=== PATIENT | male | born 1950 | race Caucasian/White ===

== ENCOUNTER 2018-12-03 11:41 | Outpatient (CLI) | payer MEDICARE, SELFPAY ==
[2018-12-03 13:08] LABS: Anion Gap 7.6 mmol/L (3-11); BUN 18 mg/dL (7-18); CO2 31.4 mmol/L (21.0-32.0); CREATININE 0.85 mg/dL (0.70-1.30); Calcium 8.8 mg/dL (8.5-10.1); Chloride 102 mmol/L (98-107); Glucose 94 mg/dL (70-100); Potassium 4.1 mmol/L (3.5-5.1); Sodium 141 mmol/L (136-145)
== END 2018-12-03 12:01 ==
PROVIDERS: PCP Family Medicine; Visit Provider Nurse Practitioner
DX: I10 Essential (primary) hypertension (principal)
CPT/HCPCS: 36415; 80048

== ENCOUNTER 2020-01-18 04:01 | Outpatient (CLI) | payer OTHER, MEDICARE, SELFPAY ==
[2020-01-18 13:39] LABS: Calculated LDL 143 mg/dL (<100); Cholesterol 249 mg/dL (<200); HDL Cholesterol 67 mg/dL (40-60); Triglyceride 199 mg/dL (<150)
== END 2020-01-18 04:21 ==
PROVIDERS: PCP Nurse Practitioner; Visit Provider Nurse Practitioner
DX: I10 Essential (primary) hypertension (principal)
CPT/HCPCS: 36415; 80061

== ENCOUNTER 2020-12-25 02:32 | Outpatient (CLI) | payer OTHER, SELFPAY ==
[2020-12-25 12:49] LABS: CREATININE 0.9 mg/dL (0.70-1.30); Calculated LDL 67 mg/dL (<100); Cholesterol 155 mg/dL (<200); HDL Cholesterol 62 mg/dL (40-60); Potassium 4.5 mmol/L (3.5-5.1); Triglyceride 131 mg/dL (<150)
== END 2020-12-25 02:33 | disposition home or self-care (01) ==
LOC: LOS 02:33
PROVIDERS: PCP Nurse Practitioner; Visit Provider Nurse Practitioner
DX: I10 Essential (primary) hypertension (principal); E78.5 Hyperlipidemia, unspecified
CPT/HCPCS: 36415; 80061; 82565; 84132

== ENCOUNTER 2021-07-31 10:40 | Emergency (ER) | payer OTHER, SELFPAY ==
[2021-07-31] VITALS (9 sets, daily range): BP systolic 136–154; BP diastolic 82–92; PULSE 53–61; RESP 12–18; TEMP 36.4; O2SAT 97–100
--- NOTE | 2021-07-31 10:30 | RT.EKG_ITS ---
APPROVED REPORT Exam: Resting ECG Reason for Exam: DIZZINESS Patient Location: E HR:53 bpm ECG Measurements Heart Rate 53 AXIS GA 172 P 40 QRSd 97 QRS -24 QT 434 T 10 QTc 406 Conclusion Sinus bradycardia...rate< 60
[2021-07-31] MEDS: Lactated Ringers 1,000 ML 1000 ML IV (11:15)
--- NOTE | 2021-07-31 11:18 | ED.GENADUL_ITS ---
Discharge Plan Disposition Patient Disposition: HOME Condition: Stable Discharge Details Clinical Impression: Pre-syncope, Bradycardia, Acute dehydration Primary Care Provider: Isadora Chen ED Provider: Bryan Gee Home Meds and New Rx's Prescriptions: Continued atorvastatin 20 mg tablet 20 mg PO QPM Qty: 90 4RF losartan 100 mg tablet 100 mg PO DAILY Qty: 90 4RF hydrochlorothiazide 25 mg tablet 25 mg PO DAILY Qty: 90 4RF Discharge Instructions Instructions: Dehydration (ED), Bradycardia (ED), Near Syncope (ED) Additional Instructions: It was determined that you were dehydrated today. Please be sure to drink plenty of clear liquids to maintain adequate hydration. Your heart rate was low today. It was recommended that you have a Holter monitor for outpatient cardiac monitoring placed at time of discharge. You have refused this recommended diagnostic test. You may have life-threatening or lifestyle modifying disease that would go undiagnosed and untreated without further testing. Please be sure to discuss this with your doctor as soon as possible. Return to the emergency department at any time for further work-up and treatment Please contact your primary care physician to arrange follow-up. Return to the ER immediately for any worsening or new concerning symptoms. Referrals: Isadora Chen, MIXING OPERATOR [Primary Care Provider] - Medical Decision Making 1122--70-year-old male with history of COPD, hyperlipidemia, hypertension, ulcerative colitis, here with sudden onset of presyncope while at rest this morning. Patient has mild bradycardia with heart rate in the 50s here. He states that typically his heart rate is in the 70s. Blood pressure is mildly elevated. Patient has poor skin turgor and dry mucous membranes and I am concerned about hypovolemia. I will give crystalloid bolus and reassess status. Consider significant lecture light abnormalities including hypokalemia as well as thyroid dysfunction. Labs pending. EKG was reviewed and interpreted by me: Please see report, sinus bradycardia, biphasic T waves noted in V5 and V6, no old for comparison. -- Labs reviewed -elevated BUN is consistent with hypovolemia. No significant electrolyte abnormalities. Normal TSH. Patient reassessed and heart rate improved in the 60s. Patient is feeling much better after IV fluid. Plan for outpatient follow-up. Plan for outpatient Holter monitoring to be initiated at discharge. Patient provided informed refusal of Holter monitor. He plans to follow-up with his primary care physician. Disposition decision was made weighing the risks and benefits of hospitalization versus outpatient treatment, the risk for further decompensation, and the patient's wishes. The patient was stable and requested discharge. Prior to discharge, my usual and customary return precautions were reviewed with the patient - this included follow-up instructions and reason to return to the emergency department if condition worsens, does not improve as expected, or other new concerns arise. Lab Data Lab results reviewed: Yes I reviewed the patient's lab results. Labs: Laboratory Tests Range/Units 07/31/21 07/31/21 07/31/21 11:16 11:16 11:35 WBC (4.4-10.8) 10^3/uL 6.03 RBC (4.36-5.78) 10^6/uL 4.77 Hgb (13.5-17.5) g/dL 14.1 Hct (40.0-50.0) % 43.3 MCV (80-95) fL 91 MCH (27.0-33.0) pg 29.6 MCHC (32.0-36.0) % 32.6 RDW (11.8-14.1) % 12.9 Plt Count (130-400) 10^3/uL 196 MPV (8.0-11.0) fL 11.4 H Immature Gran % 0.2 Neutrophils % 67.1 Lymphocytes % 21.7 Monocytes % 8.1 Eosinophils % 2.2 Basophils % 0.7 Nucleated RBC % (0.0-0.3) % 0.0 Absolute Neutrophils (1.2-6.7) 10^3/uL 4.05 Absolute Lymphocytes (1.2-3.4) 10^3/uL 1.31 Absolute Monocytes (0.1-0.8) 10^3/uL 0.49 Absolute Eosinophils (0.0-0.7) 10^3/uL 0.13 Absolute Basophils (0.0-0.2) 10^3/uL 0.04 Sodium Cancelled 139 Potassium Cancelled 3.6 Chloride Cancelled 103 Carbon Dioxide Cancelled 29.0 Anion Gap Cancelled 7.0 BUN Cancelled 25 H Creatinine Cancelled 0.9 Estimated GFR/1.73 m2 Cancelled >= 60.00 Glucose Cancelled 136 H Calcium Cancelled 8.2 L Magnesium Cancelled 2.0 Total Bilirubin Cancelled 0.4 AST Cancelled 19 ALT Cancelled 29 Alkaline Phosphatase Cancelled 60 Troponin I Cancelled < 50 Total Protein Cancelled 6.5 Albumin Cancelled 3.3 L TSH Cancelled 0.82 HPI General Mode of arrival: ambulatory . Date/Time Provider Initiated Documentation: 07/31/21 10:55 . Limitations to Documentation: no limitations . Information obtained by: patient . HPI Narrative: 70-year-old male with history of COPD, hyperlipidemia, ulcerative colitis, hypertension, presents with chief complaint of dizziness. Patient notes lightheadedness with a feeling like he was going to pass out which came on just prior to arrival while he was seated and at rest symptoms were severe. No modifiers. Symptoms resolved after a few minutes. He had no associated pain including no headache, chest pain or abdominal pain during the episode. Patient denies recent lower extremity edema or calf pain. Patient does note he has not been drinking as much fluid as he thinks he should and is worried that he could be dehydrated. Related Data Home Medications Medication Instructions Recorded Confirmed atorvastatin 20 mg tablet 20 mg PO QPM #90 tabs 12/28/20 07/31/21 losartan 100 mg tablet 100 mg PO DAILY #90 tabs 01/25/21 07/31/21 hydrochlorothiazide 25 mg tablet 25 mg PO DAILY #90 tabs 03/12/21 07/31/21 Previous Rx's Medication Instructions Recorded atorvastatin 20 mg tablet 20 mg PO QPM #90 tabs 12/28/20 losartan 100 mg tablet 100 mg PO DAILY #90 tabs 01/25/21 hydrochlorothiazide 25 mg tablet 25 mg PO DAILY #90 tabs 03/12/21 Allergies Allergy/AdvReac Type Severity Reaction Status Date / Time No Known Allergies Allergy Verified 07/31/21 10:55 General Stated Complaint: Dizzy/Sync VÍCTOR: 3 Review of Systems All systems reviewed & are unremarkable except as noted in HPI and below Constitutional Constitutional: Denies fever(s) Cardiovascular Cardiovascular: Denies chest pain and Denies dyspnea Respiratory Respiratory: Denies dyspnea Musculoskeletal Musculoskeletal: Reports back pain (low, chronic) PFSH All Active Problems (Updated 07/31/21 @ 13:19 by Bryan Gee MD) Pre-syncope (Acute) Bradycardia (Acute) Acute dehydration (Acute) Seborrheic keratoses (Acute) scalp Varicose vein of leg (Acute) Hyperlipidemia (Acute) COPD (chronic obstructive pulmonary disease) (Chronic) Nocturia (Acute) Ulcerative colitis (Acute 09/12/11) Primary osteoarthritis of left knee (Acute 10/13/16) both knees- has seen ortho here Essential hypertension (Acute 03/03/13) Cavus deformity of right foot, acquired (Acute 10/29/15) Medical History Arthritis of knee Closed displaced fracture of shaft of fourth metacarpal bone of right hand with routine healing (10/13/16) COPD (chronic obstructive pulmonary disease) Hypercholesterolemia Hypertension Laceration of foot Sebaceous cyst Shoulder dislocation Tendon laceration Traumatic rupture of left posterior tibial tendon (07/11/15) Ulcerative colitis Surgical History Incision & Drainage, Abscess or Hematoma Family History Mother , age 91 No problems noted. Father , age 61 COPD (chronic obstructive pulmonary disease) Sister Depression Son No problems noted. Daughter No problems noted. Daughter No problems noted. Maternal Grandfather No problems noted. Paternal Grandfather Stroke Maternal Grandmother Cancer ?ovarian/bone Paternal Grandmother No problems noted. Social History Smoking/Tobacco Use Status: Former Tobacco Use Tobacco: How many years used: 30 Second Hand Exposure: Yes Smoking risk assessment performed?: Yes Alcohol Intake: current Alcohol Intake frequency: 0-2 drinks per day Alcohol type: beer Drug use: Never Substance use type: does not use Counseling given: No Caregiver/Support person: No Household members: spouse Housing: house Communication Needs: Hard of Hearing Do you need help understanding health information?: Rarely Pets and animals: Yes Pets and animals: dog(s) and horse(s) Sexually active: No Do you think of yourself as: straight/heterosexual What is your relationship status?: How often do you talk on the phone with friends or family?: three or more times per week Do you belong to any clubs or organized social groups?: no Panel score (0-1 are the most socially isolated patients): 2 Frequency: daily Special jacqui needs: No Seatbelt use: sometimes Helmet use: Yes Helmet use: sometimes Drive intox or ride w/intox route sales driver: No Do you feel safe in your relationship?: Yes Exam Const General: cooperative and no acute distress HENMT Head: normocephalic and atraumatic Mouth: mucous membranes dry Eyes Conjunctivae: normal conjunctivae Sclera: normal sclerae EOM: EOM intact bilaterally Neck Neck: trachea midline and supple Resp Auscultation: clear to auscultation bilaterally, no rales, no rhonchi and no wheezes Cardio Rate: not tachycardic Rhythm: regular rhythm GI Palpation: soft, not firm, no guarding, no masses, not rigid and nontender Skin General skin exam: no rashes or lesions noted and turgor decreased Neuro General: patient alert, patient awake, patient oriented x3 and tone normal Cranial Nerves: CN's II-XI intact bilaterally Speech: speech normal Gait: normal gait Motor: strength 5/5 throughout Sensory Exam: no sensory deficits noted Extrem General: no edema Psych Appearance: grossly normal Mental Status: mental status grossly normal Speech and Movement: speech and movement normal Course Vital Signs Vital signs: Vital Signs Temperature 36.4 C L 07/31/21 10:39 Pulse 59 L 07/31/21 10:39 Respiratory Rate 12 07/31/21 10:39 Blood Pressure 136/82 07/31/21 10:39 Pulse Oximetry 100 07/31/21 10:39 Temperature 36.4 C L 07/31/21 10:39 Temperature Source Temporal Artery Scan 07/31/21 10:39 Pulse 59 L 07/31/21 10:39 Respiratory Rate 18 07/31/21 11:00 Respiratory Effort 07/31/21 11:00 Respiratory Depth Normal 07/31/21 11:00 Respiratory Pattern Normal 07/31/21 11:00 Blood Pressure 136/82 07/31/21 10:39 Blood Pressure Position Supine 07/31/21 10:39 Pulse Oximetry 100 07/31/21 10:39 Oxygen Delivery Method Nasal Cannula 07/31/21 10:39 Pain Level 0 07/31/21 10:39
[2021-07-31 11:26] LABS: Abs Immature Grans 0.01 10^3/uL (0.0-0.06); Absolute Basophil Count 0.04 10^3/uL (0.0-0.2); Absolute Eosinophil Count 0.13 10^3/uL (0.0-0.7); Absolute Lymphocyte Count 1.31 10^3/uL (1.2-3.4); Absolute Monocyte Count 0.49 10^3/uL (0.1-0.8); Absolute Neutrophil Count 4.05 10^3/uL (1.2-6.7); Basophils % 0.7; Eosinophils % 2.2; HCT 43.3 % (40.0-50.0); HGB 14.1 g/dL (13.5-17.5); Immature Grans % 0.2; Lymphocytes % 21.7; MCH 29.6 pg (27.0-33.0); MCHC 32.6 % (32.0-36.0); MCV 91 fL (80-95); MPV 11.4 fL (8.0-11.0); Monocytes % 8.1; Neutrophils % 67.1; Platelet Count 196 10^3/uL (130-400); RBC 4.77 10^6/uL (4.36-5.78); RDW 12.9 % (11.8-14.1); RDW-SD 43.4 fL; WBC 6.03 10^3/uL (4.4-10.8)
[2021-07-31 12:07] LABS: ALT 29 U/L (16-63); AST 19 U/L (15-37); Albumin 3.3 g/dL (3.4-5.0); Alkaline Phosphatase 60 U/L (46-116); BUN 25 mg/dL (7-18); Bilirubin, Total 0.4 mg/dL (0.2-1.0); CREATININE 0.9 mg/dL (0.70-1.30); Calcium 8.2 mg/dL (8.5-10.1); Chloride 103 mmol/L (98-107); Glucose 136 mg/dL (74-106); Potassium 3.6 mmol/L (3.5-5.1); Sodium 139 mmol/L (136-145); TSH (W/Ref FT4) 0.82 uIU/mL (0.36-3.74); Total Protein 6.5 g/dL (6.4-8.2); Troponin I < 50 ng/L (<or=60)
[2021-07-31 13:49] LABS: Calculated LDL 134 mg/dL (<100); Cholesterol 210 mg/dL (<200); HDL Cholesterol 60 mg/dL (40-60); Triglyceride 84 mg/dL (<150)
== END 2021-07-31 14:42 | disposition home or self-care (01) ==
LOC: ER 13:40
PROVIDERS: Emergency Provider Student in an Organized Health Care Education/Training Program; PCP Nurse Practitioner
DX: R55 Syncope and collapse; R00.1 Bradycardia, unspecified; E86.0 Dehydration; R42 Dizziness and giddiness
CPT/HCPCS: 36415; 80053; 80061; 93005; 96360; 99284; 83735; 84443; 84484; 85025; 93010

== ENCOUNTER 2022-02-17 08:59 | Outpatient (CLI) | payer OTHER, SELFPAY | END 2022-02-17 09:00 | disposition home or self-care (01) | LOC: CARDOPNVT 08:59 | PROVIDERS: PCP Family Medicine; Visit Provider Family Medicine | DX: R00.1 Bradycardia, unspecified (principal); R55 Syncope and collapse | CPT/HCPCS: 93270 ==

== ENCOUNTER 2022-03-24 11:36 | Outpatient (CLI) | payer MEDICARE, SELFPAY ==
--- NOTE | 2022-03-24 11:42 | W.CARDEVENT ---
Date of service: 03/24/22 Time of Service: 11:42 Cardiac Event Recorder Referring Provider:: Yesenia Horowitz Indications:: Bradycardia Cardiac Event Note: This is a cardiac event monitor, reportedly ordered for bradycardia. Patient was monitored for a total period of 20 days Rhythm throughout was sinus with an average heart rate of 76. Minimum was 57, maximum 132 There were no significant ventricular dysrhythmias There were rare atrial premature beats. There was no atrial fibrillation. The strip labeled atrial fibrillation was sinus tachycardia with premature atrial contractions There was no high-grade AV block, no pauses greater than 3 seconds No apparent patient's symptoms
== END 2022-03-24 11:37 | disposition home or self-care (01) ==
LOC: CARDOPNVT 11:36
PROVIDERS: PCP Family Medicine; Visit Provider Internal Medicine Cardiovascular Disease
DX: R00.0 Tachycardia, unspecified (principal)
CPT/HCPCS: 93272

== ENCOUNTER 2022-05-15 02:34 | Outpatient (CLI) | payer MEDICARE, SELFPAY ==
--- NOTE | 2022-05-15 08:00 | DI.RAD_ITS ---
Exam(s) XR CHEST 2V PA LATERAL EXAM: XR CHEST 2V PA LATERAL CLINICAL HISTORY: cough x 3 wks,copd,j44.9 TECHNIQUE: 2D digital imaging was performed of the chest. Two images were obtained. PA and lateral views were obtained. COMPARISON: CR LEFT RIBS TO INCLUDE CXR from 08/03/2016 FINDINGS: MEDIASTINUM: Normal. HEART: Normal. PULMONARY VASCULATURE: Normal. There is tortuosity of the thoracic aorta. LUNGS: Clear. PLEURAL SPACE: No pleural effusion or pneumothorax. BONE:Within normal limits for the patient's age. OTHER FINDINGS:Normal. IMPRESSION: No acute pulmonary findings. DATA REPOSITORY: RADIATION DOSE DELIVERED:
[2022-05-15] MEDS: Albuterol HFA 18 GM 200 PUFF INH IH (11:36)
[2022-05-15] MEDS: Inhaler, Assist Device 1 EACH MC (11:36)
--- NOTE | 2022-05-16 16:12 | W.PFT ---
Date of service: 05/15/22 Time of Service: 10:12 Pulmonary Function Test Result Requesting Provider Yesenia Horowitz Indications: COPD Interpretation Spirometry: There is no airflow limitation. There is no bronchodilator response. Lung Volumes: Normal lung volumes Diffusion Capacity: Elevated diffusion, likely due to elevatred BMI Airway Pressure: Normal airways resistance Impression Normal pulmonary function testing Note: When compared to 05/12/11, lung function is stable when adjusting for age. Clinical Correlation therefore is recommended.
== END 2022-05-15 02:35 | disposition home or self-care (01) ==
PROVIDERS: PCP Family Medicine; Visit Provider Family Medicine
DX: J44.9 Chronic obstructive pulmonary disease, unspecified (principal)
CPT/HCPCS: 94060; 94726; 94729; 71046

== ENCOUNTER 2022-07-17 11:38 | Outpatient (CLI) | payer MEDICARE, SELFPAY ==
--- NOTE | 2022-07-17 11:00 | DI.RAD_ITS ---
Exam(s) XR FINGER LT MIDDLE EXAM: XR FINGER LT MIDDLE CLINICAL HISTORY: LEFT MIDDLE FINGER. TECHNIQUE: 2D digital imaging was performed of the left finger. Three views were obtained. AP, lat eral and oblique views were obtained. COMPARISON: No exams were available for comparison FINDINGS: BONES: No acute fracture is present. No bony destructive lesion is seen. JOINTS: No dislocation present. Degenerative changes are seen in the interphalangeal joints of the fi nger with mild joint space narrowing and bony hypertrophy. SOFT TISSUE: Normal. IMPRESSION: Degenerative changes of the middle finger. DATA REPOSITORY: RADIATION DOSE DELIVERED:
== END 2022-07-17 11:39 | disposition home or self-care (01) ==
LOC: DIORS 11:38
PROVIDERS: PCP Family Medicine; Referring Provider Family Medicine; Visit Provider Student in an Organized Health Care Education/Training Program
DX: M67.442 Ganglion, left hand (principal)
CPT/HCPCS: 99213; 73140

== ENCOUNTER 2022-07-30 12:19 | Day surgery (SDC) | payer MEDICARE, SELFPAY ==
[2022-07-30 12:20] VITALS: BP 168/96; PULSE 70; RESP 16; TEMP 36.2; O2SAT 97
--- NOTE | 2022-07-30 14:02 | W.PM.DSUDISC ---
Date of service: 07/30/22 Time of Service: 14:02 Discharge Plan Disposition Patient Disposition: Home Condition: Good Discharge Details Reason For Visit: LMF cyst excision Attending Provider: Lisandro Johnson Primary Care Provider: Yesenia Horowitz Home Meds and New Rx's Prescriptions: New acetaminophen 500 mg tablet 1,000 mg PO TID Qty: 90 0RF ibuprofen 600 mg tablet 600 mg PO TID PRN (Reason: pain) Qty: 90 0RF Continued fluticasone propionate 50 mcg/actuation spray,suspension 1 spray intranasal BID Qty: 16 1RF Rx Instructions: administer into each nostril hydrochlorothiazide 12.5 mg tablet 12.5 mg PO DAILY Qty: 90 3RF losartan 100 mg tablet 100 mg PO DAILY Qty: 90 4RF Discharge Instructions Additional Instructions: Finger Cyst Excision Discharge Instructions Activity: You may use the finger for light activities as tolerated after the first two days. Avoid rigorous use or heaving lifting with that hand. Dressing/Cast: You may remove the dressing in two days and replace it with a Band-aid. You may shower and get the incision wet after 48 hours. Medications: - You should take Tylenol and Ibuprofen for baseline pain control. - You may apply ice over the finger. Follow-up: 7-10 days Referrals: Lisandro Johnson MD [ [facility] STAFF PHYSICIAN] - Activity:: Activity as Tolerated Remove Dressings/Wound Care:: 48 hours Shower/Bathe:: 48 hours Diet:: As Tolerated Discharge Orders Discharge Orders: Discharge Order (Routine); Ordered 07/30/22 Ordered By: Milind Strange
[2022-07-30] MEDS: Lidocaine 1% Pres-Free W/EPI 1/200,000 10 ML VIAL (14:20)
[2022-07-30] MEDS: Sodium Bicarbonate 50 MEQ/50 ML VIAL (14:20)
[2022-07-30 14:42] VITALS: BP 141/87; PULSE 65; RESP 16; TEMP 36.6; O2SAT 96
--- NOTE | 2022-07-31 07:44 | W.PM.OP ---
Date of service: 07/30/22 Time of Service: 14:20 Operative Note Operative Note DATE OF PROCEDURE: 07/30/22 PRE-OP DIAGNOSIS: Left Middle Finger Digital Mucous Cyst with Nail Deformity POST-OP DIAGNOSIS: same PROCEDURE: Mucous Cyst Excision - Left Middle Finger SURGEON: Lisandro Johnson ANESTHESIA TYPE: Local By Surgeon Refer to Anesthesia Record ESTIMATED BLOOD LOSS: 5 PATHOLOGY: none sent COMPLICATIONS: None Patient was transported to: same day Patient's condition: stable Indications: I have seen Festus in clinic for symptoms of a digital mucous cyst. The mass persisted and caused pain to direct contact and with use. The diagnosis of a mucous cyst was made. The symptoms had not responded to conservative measures. I discussed cyst excision with the patient. I reviewed the risks of the procedure to include, but not limited to, bleeding, infection, pain, stiffness, recurrence, damage to nerves or vessels. Despite these risks, the patient elected to proceed. Findings: There was a cyst of the distal phalanx, arising from the DIP joint. The cyst and its capsule was removed and an arthrotomy at the cyst location performed. Procedure Description: Festus was greeted in the preoperative holding area where the correct side was identified and marked. The consent was reviewed with the patient and signed. All questions were answered. He was taken back to the operating room. The patient was placed into the supine position on the operating room table with the left arm on an arm board. All bony prominences were well padded. No prophylactic antibiotics were administered since this was a clean, elective hand surgical case. The [LATERALITY] arm was then prepped with Chloraprep and draped in a standard fashion with stockinette and extremity drape. A timeout to confirm correct identity, side and site, procedure, allergies, anesthesia, and medical concerns was performed. A digital block was then performed using 1% lidocaine with epinephrine and buffered with sodium bicarbonate. This was allowed time to set up completely and was tested before proceeding with the case. A longitudinal incision was then made overlying the cyst. The skin was incised sharply. Full-thickness flaps were then elevated to expose the cyst. The cyst capsule was then removed with a rongeur and followed back towards the DIP joint. Using the rongeur and a [place] I was able to penetrate into the DIP joint creating a small arthrotomy from the origin of the mucous cyst. The finger was irrigated and once again checked to make sure that all components of the cyst were removed. The skin was then closed using a #4-0 nylon in interrupted fashion. The finger was dressed with Xeroform, 4 x 4, conform dressing. The patient tolerated the procedure well and was returned to the Same Day Surgery area in a stable condition suffering no known complication.
== END 2022-07-30 15:05 | disposition home or self-care (01) ==
PROVIDERS: PCP Family Medicine; Visit Provider Student in an Organized Health Care Education/Training Program
PROC: (CPT 26160; principal; 2022-07-30 13:30)
DX: M67.844 Other specified disorders of tendon, left hand (principal)
CPT/HCPCS: 26160

== ENCOUNTER → 2022-08-08 11:25 | Outpatient (BNVA) | payer MEDICARE, SELFPAY | PROVIDERS: PCP Family Medicine; Referring Provider Family Medicine; Visit Provider Physician Assistant | DX: Z47.89 Encounter for other orthopedic aftercare (principal); M79.645 Pain in left finger(s) ==

== ENCOUNTER 2022-08-15 10:18 | Outpatient (CLI) | payer MEDICARE, SELFPAY ==
[2022-08-15 13:09] LABS: Anion Gap 8.3 mmol/L (3-11); BUN 23 mg/dL (7-18); CO2 28.7 mmol/L (21.0-32.0); Calcium 8.9 mg/dL (8.5-10.1); Calculated LDL 147 mg/dL (<100); Chloride 104 mmol/L (98-107); Cholesterol 243 mg/dL (<200); Estimated GFR 79.97 (mL/min/1.73m2); Glucose 116 mg/dL (74-106); HDL Cholesterol 66 mg/dL (40-60); Potassium 3.8 mmol/L (3.5-5.1); Sodium 141 mmol/L (136-145); Triglyceride 154 mg/dL (<150)
== END 2022-08-15 10:19 | disposition home or self-care (01) ==
LOC: LOS 10:18
PROVIDERS: PCP Family Medicine; Visit Provider Family Medicine
DX: I10 Essential (primary) hypertension (principal); R79.89 Other specified abnormal findings of blood chemistry
CPT/HCPCS: 36415; 80048; 80061

== ENCOUNTER 2023-12-22 03:16 | Outpatient (CLI) | payer MEDICARE, SELFPAY ==
[2023-12-22 12:24] LABS: Iron 112 ug/dL (65-175); Total Iron Binding Capacity 276 ug/dL (250-450); Transferrin Sat 41 % (20-55)
[2023-12-22 13:05] LABS: ALT 27 U/L (16-63); AST 23 U/L (15-37); Albumin 3.8 g/dL (3.4-5.0); Alkaline Phosphatase 69 U/L (46-116); Anion Gap 7.3 mmol/L (3-11); BUN 13 mg/dL (7-18); Bilirubin, Total 0.61 mg/dL (0.2-1.0); CO2 31.7 mmol/L (21.0-32.0); CREATININE 0.9 mg/dL (0.70-1.30); Calcium 9.1 mg/dL (8.5-10.1); Chloride 104 mmol/L (98-107); Estimated GFR 89.62 (mL/min/1.73m2); Ferritin 144 ng/mL (26-388); Glucose 92 mg/dL (74-106); Sodium 143 mmol/L (136-145); Total Protein 7.5 g/dL (6.4-8.2); Vitamin B12 218 pg/mL (193-986)
[2023-12-22 13:20] LABS: C-Reactive Protein < 0.50 mg/dL (<or=0.5)
[2023-12-23 10:27] LABS: IgA 141 mg/dL (85-499)
[2023-12-23 10:29] LABS: Tissue Transglutaminase IgA <4.0 CU (<20.0)
== END 2023-12-22 03:17 | disposition home or self-care (01) ==
LOC: LOS 03:16
PROVIDERS: PCP Family Medicine; Visit Provider Student in an Organized Health Care Education/Training Program
DX: K51.00 Ulcerative (chronic) pancolitis without complications (principal); R14.0 Abdominal distension (gaseous)
CPT/HCPCS: 36415; 80053; 82784; 82607; 82728; 82746; 83540; 83550; 86140

== ENCOUNTER 2023-12-24 03:14 | Outpatient (CLI) | payer MEDICARE, SELFPAY ==
[2023-12-24 12:11] LABS: Abs Immature Grans 0.01 10^3/uL (0.0-0.06); Absolute Basophil Count 0.07 10^3/uL (0.0-0.2); Absolute Eosinophil Count 0.21 10^3/uL (0.0-0.7); Absolute Monocyte Count 0.48 10^3/uL (0.1-0.8); Absolute Neutrophil Count 2.96 10^3/uL (1.2-6.7); Basophils % 1.4 %; Eosinophils % 4.2 %; HCT 46.1 % (40.0-50.0); Immature Grans % 0.2 %; Lymphocytes % 25.8 %; MCH 29.4 pg (27.0-33.0); MCHC 32.5 % (32.0-36.0); MCV 90 fL (80-95); MPV 10.8 fL (8.0-11.0); Monocytes % 9.5 %; Neutrophils % 58.9 %; Platelet Count 222 10^3/uL (130-400); RDW 13.3 % (11.8-14.1); WBC 5.03 10^3/uL (4.4-10.8)
[2023-12-24 12:33] LABS: Anion Gap 4.4 mmol/L (3-11); BUN 14 mg/dL (7-18); CO2 32.6 mmol/L (21.0-32.0); CREATININE 0.9 mg/dL (0.70-1.30); Calculated LDL 161 mg/dL (<100); Chloride 107 mmol/L (98-107); Cholesterol 246 mg/dL (<200); Estimated GFR 89.62 (mL/min/1.73m2); Glucose 93 mg/dL (74-106); HDL Cholesterol 63 mg/dL (40-60); Potassium 4.3 mmol/L (3.5-5.1); Sodium 144 mmol/L (136-145); Triglyceride 110 mg/dL (<150)
== END 2023-12-24 03:15 | disposition home or self-care (01) ==
LOC: LOS 03:14
PROVIDERS: PCP Family Medicine; Visit Provider Student in an Organized Health Care Education/Training Program
DX: I10 Essential (primary) hypertension (principal); Z13.6 Encounter for screening for cardiovascular disorders; K51.00 Ulcerative (chronic) pancolitis without complications
CPT/HCPCS: 36415; 80048; 80061; 85025

== ENCOUNTER 2024-01-07 01:41 | Outpatient (CLI) | payer MEDICARE, SELFPAY ==
--- NOTE | 2024-01-07 | DI.DEXA_ITS ---
Exam(s) XR DEXA BONE DENSITY W/WO MAINE EXAM: XR DEXA BONE DENSITY W/WO MAINE CLINICAL HISTORY: Long-term current use of systemic steroids, Z79.52; IBD; needs baseline TECHNIQUE: Routine DEXA evaluation of the lumbar spine, hip, or forearm. COMPARISON: No exams were available for comparison FINDINGS: Performed on a Hologic unit. Lateral image: There is slight loss of height of superior endplate of L1, appearing chronic. Lumbar Spine total T-score: 1.9 (which is within normal limits) Hip total T-score:-0.4 Independent reading at the level of the femoral neck yields T-score of -1.3 Forearm total T-score: -1.1 total forearm; 0.14 distal 3rd left wrist IMPRESSION: Bone mineral density measures in the osteopenia range. Fracture risk is moderate. Note: Any spine fracture indicates 5x risk for subsequent spine fracture and 2x risk for subsequent h ip fracture. World Health Organization criteria for BMD interpretation classify patients: Normal...... T- Score at or above -1.0 Osteopenic... T- Score between -1.0 and -2.5 Osteoporosis... T-Score at or below -2.5
== END 2024-01-07 02:01 ==
LOC: DI 01:41
PROVIDERS: PCP Family Medicine; Visit Provider Student in an Organized Health Care Education/Training Program
DX: Z79.52 Long term (current) use of systemic steroids (principal); Z13.820 Encounter for screening for osteoporosis; M85.89 Other specified disorders of bone density and structure, multiple sites
CPT/HCPCS: 77080

== ENCOUNTER 2024-01-19 01:14 | Outpatient (CLI) | payer MEDICARE, SELFPAY ==
--- NOTE | 2024-01-19 10:36 | DI.RAD_ITS ---
Exam(s) XR LUMBAR SPINE COMPLETE EXAM: XR LUMBAR SPINE COMPLETE CLINICAL HISTORY: low back pain,rt sided sciatica,m54.31. TECHNIQUE: 2D digital imaging was performed of the lumbar spine. Five images were obtained. AP, la teral, right oblique, left oblique and L5-S1 spot views were obtained. COMPARISON: CR XR DEXA BONE DENSITY W/WO MAINE from 01/07/2024 FINDINGS: BONES: No fracture or destructive lesion. Mild stable chronic compression deformity of L1. There are anterior osteophytes throughout the lumbar spine. Degenerative changes of the facets are present. DISKS: Intervertebral disc spaces are maintained. ALIGNMENT: There is a mild right convex curvature of the lumbar spine. No spondylolysis or spondylol isthesis. SOFT TISSUE: Normal. IMPRESSION: Note is made of DISH in the lumbar spine. DATA REPOSITORY: RADIATION DOSE DELIVERED:
== END 2024-01-19 01:34 ==
LOC: DI 01:15
PROVIDERS: PCP Family Medicine; Visit Provider Family Medicine
DX: M54.31 Sciatica, right side (principal)
CPT/HCPCS: 72110

== ENCOUNTER 2024-05-31 01:43 | Outpatient (CLI) | payer MEDICARE, SELFPAY ==
[2024-05-31 12:18] LABS: Abs Immature Grans 0.01 10^3/uL (0.0-0.06); Absolute Basophil Count 0.07 10^3/uL (0.0-0.2); Absolute Eosinophil Count 0.07 10^3/uL (0.0-0.7); Absolute Lymphocyte Count 1.05 10^3/uL (1.2-3.4); Absolute Monocyte Count 0.55 10^3/uL (0.1-0.8); Absolute Neutrophil Count 2.84 10^3/uL (1.2-6.7); Basophils % 1.5 %; Eosinophils % 1.5 %; HCT 44.3 % (40.0-50.0); HGB 14.6 g/dL (13.5-17.5); Immature Grans % 0.2 %; Lymphocytes % 22.9 %; MCH 29.9 pg (27.0-33.0); MCV 91 fL (80-95); MPV 10.8 fL (8.0-11.0); Neutrophils % 61.9 %; Platelet Count 196 10^3/uL (130-400); RBC 4.89 10^6/uL (4.36-5.78); RDW-SD 42.9 fL; WBC 4.59 10^3/uL (4.4-10.8)
[2024-05-31 12:26] LABS: ESR 9 mm/hr (0-20)
[2024-05-31 12:45] LABS: ALT 36 U/L (16-63); AST 24 U/L (15-37); Albumin 3.7 g/dL (3.4-5.0); Alkaline Phosphatase 70 U/L (46-116); Anion Gap 5.2 mmol/L (3-11); BUN 16 mg/dL (7-18); Bilirubin, Total 0.7 mg/dL (0.2-1.0); CO2 33.8 mmol/L (21.0-32.0); CREATININE 0.8 mg/dL (0.70-1.30); Calcium 8.9 mg/dL (8.5-10.1); Chloride 104 mmol/L (98-107); Estimated GFR 92.87 (mL/min/1.73m2); Glucose 94 mg/dL (74-106); Potassium 4.1 mmol/L (3.5-5.1); Sodium 143 mmol/L (136-145); TSH (W/Ref FT4) 0.98 uIU/mL (0.36-3.74); Total Protein 6.6 g/dL (6.4-8.2)
[2024-05-31 12:49] LABS: C-Reactive Protein < 0.50 mg/dL (<or=0.5)
[2024-05-31 13:22] LABS: Vitamin D 25 Total 22 ng/mL (30-100)
== END 2024-05-31 01:44 | disposition home or self-care (01) ==
LOC: LBO 09:31 → LOS 10:03
PROVIDERS: PCP Family Medicine; Visit Provider Family Medicine
DX: E03.9 Hypothyroidism, unspecified (principal); R05.9 Cough, unspecified; R53.83 Other fatigue; R09.81 Nasal congestion; E66.9 Obesity, unspecified; M48.10 Ankylosing hyperostosis [Forestier], site unspecified; Z00.00 Encounter for general adult medical examination without abnormal findings
CPT/HCPCS: 36415; 80053; 82306; 85652; 84443; 85025; 86140

== ENCOUNTER 2024-06-07 00:45 | Outpatient (CLI) | payer MEDICARE, SELFPAY ==
--- NOTE | 2024-06-07 06:15 | DI.CT_ITS ---
Exam(s) CT SINUS WO EXAM: CT SINUS WO CLINICAL HISTORY: chronic symptoms, not improved with 2 rnds abx,COUGH, NASAL CONGESTION,. TECHNIQUE: Imaging Protocol: Axial computed tomography images with coronal and sagittal reformatted images were created and reviewed. No IV Contrast COMPARISON: No exams were available for comparison FINDINGS: MAXILLARY SINUSES: No significant mucosal thickening nor fluid levels. There is no evidence of bone dehiscence. No evidence of surgical defects. OSTIOMEATAL UNITS: The ostiomeatal units are patent bilaterally. ETHMOIDAL AIR CELLS: Well aerated. No mucosal thickening nor fluid levels. SPHENOID SINUSES: Well aerated. No mucosal thickening nor fluid levels. FRONTAL SINUSES: Well aerated. No mucosal thickening nor fluid levels. NASAL SEPTUM AND TURBINATES:Nasal septum is relatively midline with slight deviation towards the righ t and there is a right-sided nasal septal spur which does not appear occlusive. There is no evidence of antonio bullosa. Incidentally noted is some fluid in dependent posterior right side mastoid air cells. Left mastoid a ir cells are clear. There is no fluid in the middle ear cavities on either side. IMPRESSION: 1. No significant mucosal disease nor fluid in the paranasal sinuses 2. Small effusion evident in the inferior right mastoid air cells. No bone dehiscence. RADIATION DOSE DELIVERED: 114.42mGy.cm Total DLP DATA REPOSITORY: All CT scans at this facility are submitted to the National Radiology Data Registry (NRDR) Dose Index Registry (DIR) with the [employer] ([employer]). RADIATION OPTIMIZATION: All CT scans at this facility use at least one of these dose optimization te chniques: automated exposure control; mA and/or kV adjustment per patient size (includes targeted exa ms where dose is matched to clinical indication); or iterative reconstruction.
== END 2024-06-07 01:05 ==
PROVIDERS: PCP Family Medicine; Visit Provider Family Medicine
DX: R05.9 Cough, unspecified (principal); R53.83 Other fatigue; R09.81 Nasal congestion
CPT/HCPCS: 70486

== ENCOUNTER → 2024-10-13 09:16 | Outpatient (BNVA) | payer MEDICARE, SELFPAY | PROVIDERS: PCP Family Medicine; Referring Provider Family Medicine; Visit Provider Physical Therapy Assistant | DX: Z12.11 Encounter for screening for malignant neoplasm of colon (principal) | CPT/HCPCS: S0285 ==

== ENCOUNTER 2024-10-24 08:22 | Day surgery (SDC) | payer MEDICARE, SELFPAY ==
--- NOTE | 2024-10-23 17:21 | PDOC.DSDIS_ITS ---
Date of service: 10/24/24 Discharge Plan Disposition Patient Disposition: Home Condition: Good Discharge Details Reason For Visit: screening colonoscopy Attending Provider: Edenilson Leal Primary Care Provider: Yesenia Horowitz Home Meds and New Rx's Prescriptions: Continued losartan 100 mg tablet 100 mg PO DAILY Qty: 90 4RF atorvastatin 20 mg tablet 10 mg PO DAILY Patient Comments: TAKE ONE TABLET BY MOUTH AT BEDTIME chlorthalidone 25 mg tablet 25 mg PO DAILY Qty: 30 2RF sulfasalazine 500 mg tablet 500 mg PO Q6H PRN Rx Instructions: give with food (meal/snack) Discontinued bisacodyl [Dulcolax (bisacodyl)] 5 mg tablet,delayed release (DR/EC) 5 mg PO ONCE Qty: 4 0RF Rx Instructions: Take per colonoscopy instructions provided by ordering providers office polyethylene glycol 3350 17 gram/dose powder 17 g PO ONCE Qty: 238 0RF Rx Instructions: Take per colonoscopy instructions provided by ordering providers office No Action tumerac Discharge Instructions Additional Instructions: Festus, it was a pleasure meeting you today, through the procedure. Everything went very smoothly. Your prep was excellent, you can see everything fine. As nasir from some inflammation in your rectum, which is consistent with your ulcerative colitis, and some internal hemorrhoids, everything else is totally normal. I did not see any signs of tumors or polyps today. I generally recommend 5-year intervals for screening colonoscopies for patients with inflammatory bowel disease. If you need anything, questions please do not hesitate to ask at any time. 1. If tolerated, consume a soft, low fiber diet for 1-2 days. 2[address] Do not drive, drink alcohol, operate machinery, make critical decisions, or do activities that require coordination or balance for 24 hours. 3. Because air was put into your colon during the procedure, expelling air from your rectum (passing gas or farting) is normal. 4. You may not have a bowel movement for 1-3 days because of the colonoscopy prep. This is normal. 5. Go directly to the emergency room if you notice any of the following: Develop chills (warm to touch), or if you have a thermometer and your temperature is above 101 Difficulty breathing or difficultly swallowing Persistent vomiting Severe abdominal pain, other than gas cramps Severe chest pain Black, tarry stools Any bleeding ? exceeding one tablespoon 6. Call your physician if the site where your intravenous was started becomes red, swollen, painful, and warm to touch. 7. Your physician has reviewed your pre-procedure medications. Please continue to take those medications as previously ordered. You will be given specific information/education regarding any changes to your medications before leaving. Activity:: Activity as Tolerated Diet:: As Tolerated Discharge Orders Discharge Orders: Discharge Order (Routine); Ordered 10/23/24 Ordered By: Edenilson Leal DS: Diagnosis Discharge Diagnosis (1) Encounter for screening colonoscopy: Status: Acute Asessment and Plan: Negative screening colonoscopy
--- NOTE | 2024-10-23 17:23 | COLE_ITS ---
Date of service: 10/24/24 Time of Service: 10:46 Colonoscopy Report Date of procedure: 10/24/24 Pre-op diagnosis general: screening colonoscopy Post-op diagnosis procedure note: other (Ulcerative colitis; otherwise negative screening colonoscopy) Procedure: colonoscopy Surgeon: Edenilson Leal Anesthesia Type: General:No Airway Estimated blood loss (mL): 0 Pathology: none sent Complications: None Disposition: same day Indications: Festus is a 73 year old man with a history of ulcerative colitis who needs his next screening colonoscopy Prep: Miralax/Dulcolax Procedure Start Time: 10:13 Procedure End Time: 10:33 Retraction Time: 7 Findings: Ulcerative colitis Procedure Description: After the induction of anesthesia, and with the patient in left lateral decubitus position, I began by performing an external anorectal exam.? Perineum and skin were normal, as was the anal verge.? There was no evidence of external hemorrhoids.? Next, I performed a digital rectal exam.? I did not appreciate any abnormal findings.? Next, I advanced a colonoscope into the rectal vault.? I performed retroflexion.? There are internal hemorrhoids.? Using insufflation, I then advanced the colonoscope beyond the rectal folds and into the sigmoid colon before advancing towards the cecum. There is inflammation of the distal rectum with no signs of ulceration or active bleeding. It extends up to about 20 cm beyond the anus. The remainder of the colonic mucosa was normal.. The scope was noted to be in the cecum by identification of the ileocecal valve and appendiceal orifice.? I then began withdrawing the colonoscope using repeated irrigation as necessary for full evaluation of the colonic mucosa. ?Once the scope was withdrawn to the level of the rectum, great care was taken to examine portions of the rectal folds.? Aside from the inflammation mentioned above, everything else was totally normal.. Finally, the scope was withdrawn and the patient was brought to the same-day surgery recovery unit as the anesthetic wore off. ?The findings and instructions were shared with the patient prior to discharge. [place] Bowel Prep [place] Bowel Prep Right Colon: 3 Left Colon: 3 Transverse Colon: 3 Total Score: 9
[2024-10-24] MEDS: Lactated Ringers 1,000 ML 80 ML IV (08:50)
[2024-10-24 09:17] VITALS: BP 152/90; PULSE 68; RESP 16; TEMP 36.2; O2SAT 96
--- NOTE | 2024-10-24 09:49 | W.ANESPRE ---
General Info Date of Service Date Performed: 10/24/24 Height: 6 ft Weight: 92 kg Body Mass Index (BMI): 27.5 Surgical Procedure: Operation Date: 10/24/24 09:50 Proposed Procedure Side Surgeon p Maria Eugenia Leal MD Meds Allergies and Home Medications Allergies Allergy/AdvReac Type Severity Reaction Status Date / Time amlodipine AdvReac Mild Swelling/Ed Verified 10/24/24 08:47 corinne lisinopril AdvReac Mild cough Verified 10/24/24 08:47 Home Medication ?Medication ?Instructions ?Recorded losartan 100 mg tablet 100 mg PO DAILY #90 tabs 04/13/24 atorvastatin 20 mg tablet 10 mg PO DAILY 06/08/24 chlorthalidone 25 mg tablet 25 mg PO DAILY #30 tabs 09/14/24 sulfasalazine 500 mg tablet 500 mg PO Q6H PRN 10/13/24 tumerac 10/24/24 Current Visit Medications: Current Medications Generic Name Dose Route Start Last Admin Trade Name Freq PRN Reason Stop Dose Admin Ringer's Solution 1,000 mls @ 80 mls/hr 10/24/24 06:00 IV 10/24/24 23:59 INFUSION ANA CRISTINA IV Miscellaneous Supplies 1 each 10/24/24 06:00 Iv Access IV 10/24/24 23:59 DIRECTED ANA CRISTINA Ondansetron HCl 4 mg 10/23/24 17:25 Ondansetron 4 Mg/2 Ml Vial IVP 11/22/24 17:24 Q4H PRN PRN Nausea / Vomiting Sodium Chloride 0 ml 10/24/24 06:00 Normal Saline Flush 10 Ml Syr IV 10/24/24 23:59 PRN PRN Sodium Chloride 0 ml 10/24/24 06:00 Normal Saline 10 Ml Vial IJ 10/24/24 23:59 DIRECTED PRN Sterile Water 0 ml 10/24/24 06:00 Water,Injection,Sterile 10 Ml Vial IJ 10/24/24 23:59 DIRECTED PRN PFSH Active Problems Active Problems: Problem Status Onset Code Encounter for screening colonoscopy Acute Z12.11 Erectile dysfunction Chronic N52.9 Impacted cerumen, left ear Acute H61.22 Left shoulder pain Chronic M25.512 DISH (diffuse idiopathic skeletal hyperostosis) Chronic 01/2024 M48.10 Osteopenia determined by x-ray Acute M85.80 Right sided sciatica Acute M54.31 Loud snoring Chronic R06.83 Seasonal affective disorder Acute F33.8 Ulcerative colitis Chronic 09/12/11 K51.90 Essential hypertension Acute 03/03/ I10 Primary osteoarthritis of left knee Acute 10/13/16 M17.12 Nocturia Acute R35.1 Hyperlipidemia Acute E78.5 Varicose vein of leg Acute I83.90 Seborrheic keratoses Acute L82.1 Hearing impairment Chronic H91.90 Medical History Medical History H/O compression fracture of spine lumbar spine, fell while riding a horse Traumatic rupture of left posterior tibial tendon (07/11/15) Closed displaced fracture of shaft of fourth metacarpal bone of right hand with routine healing (10/13/16) Cavus deformity of right foot, 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) Shoulder dislocation Surgical History Surgical History Digital mucinous cyst of finger LMF S/P Excision: 08/08/2022 Hx of fracture of ankle S/P hernia surgery bilat Tobacco Smoking/Tobacco Use Status: Former Tobacco Use Passive smoking exposure: Yes Second hand exposure: Yes Alcohol Alcohol Intake: current Alcohol intake frequency: holidays/special occasions only Alcohol type: beer Substance Use Substance use: Never Substance use type: does not use Vital Signs and Lab Results Vital Signs Most Recent Vital Signs in EMR: Most Recent Vital Signs Temp Pulse Resp BP Pulse Ox 36.2 C L 68 16 152/90 H 96 10/24/24 09:17 10/24/24 09:17 10/24/24 09:17 10/24/24 09:17 10/24/24 09:17 Anesthesia Assessment and Plan Anesthesia History Personal History: No History of Anesthesia Complications Family History: No Family History of Anesthesia Complications Exercise Tolerance Exercise Tolerance: Metabolic Equivalents>4 Pertinent Negatives Pertinent Negatives: No Major Cardiovascular Symptoms or Complaints and No Major Pulmonary Symptoms or Complaints Cardiac & Pulmonary Exam Cardiac Exam: Normal S1/S2 Heart Sounds Pulmonary Exam: Clear Bilateral Breath Sounds Implantable Cardiac Device Does patient have a Pacemaker or an ICD?: No Airway Exam Known Difficult Airway: No Mallampati Class: 2 Mouth Opening: Normal (> 3cm) Thyromental Distance: Greater than 3 cm Neck Range of Motion: Full ROM Neck Circumference: Normal Teeth Condition: Normal Dentition ASA Classification ASA Score: ASA 2 Emergency Case?: No NPO Status NPO Status: NPO Clears >2 hours, Solids >8 hours Anesthesia Plan Resuscitation Status: Full Code Anesthesia Technique: General Anesthesia Airway Planned: Natural Airway Monitors Used: Standard Monitors Preoperative Comments:: 73 y/o male with history of HLD, Ulcerative Colitis, HTN and HLD presents for colonoscopy screening. His last screening was in 2019 , which was unremarkable.
[2024-10-24 09:50] VITALS: BMI 27.5
[2024-10-24 10:37] VITALS: BP 109/68; PULSE 74; RESP 16; TEMP 36.6; O2SAT 95
--- NOTE | 2024-10-24 10:55 | W.ANESPOSTOP ---
Postoperative Evaluation Date, Time and Location Date Performed: 10/24/24 Time Performed: 10:42 Patient Location: Day Surgery Unit Vital Signs Most Recent Imported Vital Signs: Most Recent Vital Signs Temp Pulse Resp BP Pulse Ox 36.6 C 74 16 109/68 95 10/24/24 10:37 10/24/24 10:37 10/24/24 10:37 10/24/24 10:37 10/24/24 10:37 Pain Score Most Recent Pain Score: Most Recent Pain Score Pain Level 0 10/24/24 10:37 Assessment Mental Status: Awake (Alert & Oriented to Patient Baseline) Airway and Respiratory Function: Patent airway with normal (patient baseline) respiratory exam Cardiovascular Function: Hemodynamically Stable Hydration Status: Adequately Hydrated Nausea & Vomiting: No Nausea or Vomiting Pain: Pt. Denies Any Pain Peripheral Nerve Block: Patient did not receive a nerve block
[2024-10-24 11:05] VITALS: BP 121/88; PULSE 63; RESP 18; TEMP 36.5; O2SAT 95
== END 2024-10-24 11:29 | disposition home or self-care (01) ==
LOC: SUR 08:22
PROVIDERS: PCP Family Medicine; Visit Provider Surgery
PROC: 0DJD8ZZ Inspection of Lower Intestinal Tract, Via Natural or Artificial Opening Endoscopic (ICD-10-PCS; CPT 45378; principal; 2024-10-24 09:45)
DX: Z12.11 Encounter for screening for malignant neoplasm of colon (principal); I10 Essential (primary) hypertension; K51.90 Ulcerative colitis, unspecified, without complications; E78.5 Hyperlipidemia, unspecified
CPT/HCPCS: G0105; J2003; J2704

== ENCOUNTER 2024-12-13 02:43 | Outpatient (CLI) | payer MEDICARE, SELFPAY ==
[2024-12-13 15:15] LABS: Anion Gap 5.7 mmol/L (3-11); BUN 13 mg/dL (7-18); CO2 31.3 mmol/L (21.0-32.0); Calcium 8.8 mg/dL (8.5-10.1); Calculated LDL 103 mg/dL (<100); Chloride 102 mmol/L (98-107); Cholesterol 179 mg/dL (<200); Estimated GFR 89.07 (mL/min/1.73m2); Glucose 97 mg/dL (74-106); HDL Cholesterol 64 mg/dL (>or=40); Potassium 4.2 mmol/L (3.5-5.1); Sodium 139 mmol/L (136-145); Triglyceride 64 mg/dL (<150)
== END 2024-12-13 02:44 | disposition home or self-care (01) ==
LOC: LOS 02:43
PROVIDERS: PCP Family Medicine; Visit Provider Family Medicine
DX: Z13.6 Encounter for screening for cardiovascular disorders (principal); E78.5 Hyperlipidemia, unspecified; I10 Essential (primary) hypertension
CPT/HCPCS: 36415; 80048; 80061

== ENCOUNTER → 2025-02-03 02:44 | Outpatient (CLI) | payer MEDICARE, SELFPAY ==
--- NOTE | 2025-02-03 08:15 | DI.MRI_ITS ---
Exam(s) MR LUMBAR SPINE WO EXAM: MR LUMBAR SPINE WO CLINICAL HISTORY: bilat lower ext weakness with walking,NEUROGENIC CLAUDICATION,DISH. TECHNIQUE: Multiplanar multisequence MRI of the Lumbar spine was performed. COMPARISON: CR XR LUMBAR SPINE COMPLETE from 01/19/2024 FINDINGS: Conus medullaris is at normal level. There is no evidence of conus mass nor subjacent clumping of intrathecal nerve roots to suggest arachnoiditis. The distal thecal sac appears unremarkable.There is no evidence of Tarlov intrasacral cysts nor other significant findings within the sacral canal Bones:Mild chronic compression fracture of L1 again noted. There are Schmorl's node invaginations in the right-side of superior endplate of L5 and in the mid aspect of the superior endplate of L4 and inferior endplate of L3, these appearing subacute with some mild surrounding bone edema. With respect to the individua disc space l levels... T12-L1: No disc herniation nor central canal stenosis. No foraminal stenosis. No significant facet arthropathy. L1-2: Mild disc space narrowing. Broad annular bulging which results in mild central spinal canal stenosis. No significant foraminal stenosis. Minimal degenerative changes in the facet joints. L2-3: Mildly decreased disc height posteriorly. There is symmetrical annular bulging. There is severe central spinal canal stenosis due to short AP dimensions the pedicles and degenerative changes in the facet joints with synovial hypertrophy in facet joints right more than left. There is mild chaparrita inal stenosis on the left side. No foraminal stenosis on the right side. L3-4: This level exhibits only mild disc space narrowing. Schmorl's node invagination, as described above. Posteriorly there is broad symmetrical annular bulging and posterior bony ridging with the moderate-severe central spinal canal stenosis due to broad annular bulging and short AP dimensions of t he pedicles as well as facet arthropathy, right more than left. There is mild bilateral foraminal stenosis at this level. L4-5: Relatively preserved disc height. No dominant disc herniation but there is broad annular bulging with moderate-severe central spinal canal stenosis also evident at this level due to the short AP dimensions the moeller pedicles, broad annular bulging, and facet arthrosis. There is significant foraminal stenosis on the right side without significant foraminal stenosis on the left side L5-S1: This level exhibits only mild decreased disc height. Posteriorly there is relatively symmetrical annular bulging without a dominant disc herniation. Central canal dimensions are lower normal. There is significant facet arthropathy bilaterally but without significant foraminal stenosis on either side at this level Soft tissues: paraspinal soft tissues appear unremarkable. IMPRESSION: 1. Severe spinal canal stenosis at L2-3, L3-4 and L4-5 levels, as described above. There are no significant focal disc herniations. The central canal stenosis at these levels is related to a combination of posterior annular bulging, short AP dimensions of the pedicles and facet arthropathy. 2. There is some multilevel asymmetric foraminal stenosis, most evident on the right side at the L4-5 level. 3. Other findings as above. DATA REPOSITORY:
== END ==
LOC: DI 02:45
PROVIDERS: PCP Family Medicine; Visit Provider Family Medicine
DX: M48.10 Ankylosing hyperostosis [Forestier], site unspecified (principal); R29.818 Other symptoms and signs involving the nervous system; M48.061 Spinal stenosis, lumbar region without neurogenic claudication
CPT/HCPCS: 72148